=== PATIENT | male | born 1980 | race Two or more races ===

== ENCOUNTER 2019-02-24 08:59 | Inpatient (IN) | payer MEDICAID, OTHER ==
[~2019-02-24] VITALS: Ht 149.9 cm; Wt 74.1 kg
[2019-02-24] MEDS ORDERED: cloNIDine HCL 0.1 MG TAB PO ONE (09:15)
[2019-02-24 09:47] LABS: Urine Bacteria NONE SEEN /hpf (None Seen); Urine Blood Negative /uL (Negative); Urine Specific Gravity 1.011 (1.001-1.035); Urine WBC <1 /hpf (0 - 3)
[2019-02-24 09:55] LABS: Basophils # (auto) 0 uL; Basophils % (auto) 0.2 % (0.0-2.0); Eosinophils # (auto) 0 uL; Eosinophils % (auto) 0.1 % (0.0-7.0); Hematocrit 42.4 % (41.0-53.0); Hemoglobin 14.6 g/dL (13.5-17.5); Lymphocytes # (auto) 0.8 uL; Lymphocytes % (auto) 8.2 % (10.0-50.0); Mean Corpuscular Hemoglobin 30.7 pg (28.0-32.0); Mean Corpuscular Hgb Conc. 34.4 g/dL (32.0-36.0); Mean Corpuscular Volume 89.1 fL (80.0-100.0); Monocytes # (auto) 0.3 uL; Monocytes % (auto) 3.3 % (0.0-12.0); Neutrophils # (auto) 8.4 uL; Neutrophils % (auto) 88.2 % (37.0-80.0); Platelet Count (auto) 292 10^3/uL (140-450); Red Blood Cells 4.75 10^6/uL (4.5-5.90); Red Cell Distribution Width 12.7 % (11.8-14.3); White Blood Cell 9.5 10^3/uL (4.4-10.8)
[2019-02-24 10:14] LABS: Alanine Aminotransferase 45 U/L (16-61); Amylase 51 U/L (25-115); Anion Gap 5 (5-15); Aspartate Aminotransferase 17 U/L (15-37); BUN/Creatinine Ratio 10.7; Blood Urea Nitrogen 9 mg/dL (7-18); Calcium 8.5 mg/dL (8.5-10.1); Carbon Dioxide 31 mmol/L (21-32); Chloride 100 mmol/L (98-107); GFR African American 130 mL/min; GFR Non-African American 108 mL/min; Glucose 118 mg/dL (74-106); Lipase 80 U/L (73-393); Potassium 3.5 mmol/L (3.5-5.1); Sodium 136 mmol/L (136-145)
[2019-02-24 10:19] LABS: Alkaline Phosphatase 97 U/L (45-117); Bilirubin, Total 0.5 mg/dL (0.2-1.0)
[2019-02-24] MEDS ORDERED: LABETALOL HCL 5 MG/ML ML 20ML VIAL IV ONE (11:45)
[2019-02-24] MEDS ORDERED: PIPERACILLIN-TAZOB 3.375GM 100 ML IV ONE (12:30)
[2019-02-24] MEDS ORDERED: metroNIDAZOLE 500MG/100ML 100 ML IV ONE (12:30)
[2019-02-24] MEDS ORDERED: MORPHINE SULFATE 4 MG/ML SYR/VIAL IV ONE (13:00)
[2019-02-24] MEDS ORDERED: ONDANSETRON HCL 4 MG/2 ML VIAL IV ONE ×2 (13:00→15:45)
[2019-02-24] MEDS ORDERED: PROMETHAZINE HCL 25 MG/ML 1ML IV PRN (13:15)
[2019-02-24] MEDS ORDERED: KETOROLAC TROMETH 30 MG/ML 1ML VIAL IV PRN (13:15)
[2019-02-24] MEDS ORDERED: ACETAMINOPHEN 500 MG TAB PO PRN (13:15)
[2019-02-24] MEDS ORDERED: traMADol HCL 50 MG TAB PO PRN (13:15)
[2019-02-24] MEDS ORDERED: TEMAZEPAM 15 MG CAP PO PRN (13:15)
[2019-02-24] MEDS ORDERED: MORPHINE SULF INJ 2 MG/ML SYRINGE 1ML IV PRN (13:15)
[2019-02-24] MEDS ORDERED: NITROGLYCERIN 0.4 MG SL TAB SL PRN (13:15)
[2019-02-24] MEDS ORDERED: cefTRIAXone 1GM/50ML D5W 50 ML IV ONE (13:15)
[2019-02-24 13:20] LABS: Lactic Acid w/Reflex 2.1 mmol/L (0.4-2.0)
[2019-02-24] MEDS: SODIUM CHLORIDE 0.9% 1,000 ML IV SCH (13:58)
[2019-02-24] MEDS: metroNIDAZOLE 500MG/100ML 100 ML IV SCH ×2 (13:59→21:49)
[2019-02-24] MEDS: FAMOTIDINE (10MG/ML) 2ML VL IV SCH (14:01)
[2019-02-24 14:10] VITALS: BP 106/70
[2019-02-24 14:12] VITALS: BP 106/70
--- NOTE | 2019-02-24 14:12 | NUR ---
Telemetry admit from ER MUKESH CASTILLO admitted to Telemetry unit after SBAR received. Patient oriented to Oscar Unger, primary RN, unit, room, bed, and unit policies regarding patient care and visiting hours. Patient now on continuous telemetry monitoring, tele box # [id number] and telemetry reading on arrival to unit is [id number]. Patient placed on bedside oxygen, weighed by bedscale and encouraged to call if they need something. All questions and concerns addressed, patient verbalized understanding.
--- NOTE | 2019-02-24 15:10 | NUR ---
Patient brought to Pre-op via bed for Laparoscopic possibly open Cholecystectomy to be performed by Dr. Keen. Gave Reports to Brigida QUESADA.
[2019-02-24] MEDS ORDERED: SUCCINYLCHOLINE CHLORIDE 20 MG/ML 10ML VIAL IV ONE (15:18)
[2019-02-24] MEDS ORDERED: LIDOCAINE 1% (LOCAL ANESTH.) PF 5ml SDV ONE (15:18)
[2019-02-24] MEDS ORDERED: MIDAZOLAM HCL 1MG/1ML-2 ML VIAL ONE (15:22)
[2019-02-24] MEDS ORDERED: PROPOFOL 10 MG/ML 20 ML IV ONE (15:24)
[2019-02-24] MEDS ORDERED: ROCURONIUM 10MG/ML 10ML VIAL IV ONE (15:24)
[2019-02-24 15:31] LABS: INR 0.88 (0.9-1.15); Partial Thromboplastin Time 26.5 sec (23.64-32.05)
[2019-02-24] MEDS ORDERED: METOCLOPRAMIDE HCL 5MG/ml INJ 2ml VIAL ONE (15:36)
[2019-02-24] MEDS ORDERED: DexAMETHasone SOD PHOS 10MG/1ML VIAL INJ ONE (15:36)
[2019-02-24] MEDS ORDERED: fentaNYL CITRATE 100 MCG/2 ML VL ONE (15:38)
[2019-02-24] MEDS ORDERED: HYDROmorphone HCL 2 MG/ML VL IV PRN ×2 (15:45)
[2019-02-24] MEDS ORDERED: NALOXONE HCL 0.4 MG/ML VIAL IV PRN (15:45)
[2019-02-24] MEDS ORDERED: KETOROLAC TROMETH 30 MG/ML 1ML VIAL ONE (15:50)
[2019-02-24] MEDS ORDERED: hydrALAZINE HCL 20 MG/ML VL ONE (15:51)
[2019-02-24] MEDS ORDERED: GLYCOPYRROLATE 0.2 MG/ML 1ML VIAL ONE (16:03)
[2019-02-24] MEDS ORDERED: NEOSTIGMINE 1 MG/ML INJ (10mg/10ML VIAL) ONE (16:04)
--- NOTE | 2019-02-24 17:30 | NUR ---
Received reports from Brigida BRASS INSTRUMENT REPAIR TECHNICIAN, patient back to his room S/P Laparoscopic Cholecystectomy with JOHNNIE drain performed by Dr. Keen. Patient is still drowsy but not in respiratory distress. Bed alarm on and side rails up x2.
--- NOTE | 2019-02-24 19:30 | NUR ---
PM NOTE PT RESTING IN BED. NO SIGNS OF DISTRESS. AT BEDSIDE. BED IN LOW POSITION. CALL LIGHT WITH IN REACH. INSTRUCTED PT ON HOW TO USE THE INCENTIVE SPIROMETER. WILL CONTINUE TO MONITOR.
[2019-02-24 22:00] VITALS: BP 112/63
[2019-02-25] MEDS: FAMOTIDINE (10MG/ML) 2ML VL IV SCH (01:45)
[2019-02-25] MEDS: SODIUM CHLORIDE 0.9% 1,000 ML IV SCH (01:45)
--- NOTE | 2019-02-25 01:46 | NUR ---
GAVE REPORT TO GUDELIA QUESADA
[2019-02-25 05:00] VITALS: BP 125/68
[2019-02-25] MEDS: metroNIDAZOLE 500MG/100ML 100 ML IV SCH (06:26)
[2019-02-25 06:37] LABS: Basophils # (auto) 0 uL; Basophils % (auto) 0.1 % (0.0-2.0); Eosinophils # (auto) 0 uL; Hematocrit 39.8 % (41.0-53.0); Hemoglobin 13.8 g/dL (13.5-17.5); Lymphocytes # (auto) 0.6 uL; Lymphocytes % (auto) 5.5 % (10.0-50.0); Mean Corpuscular Hemoglobin 31.1 pg (28.0-32.0); Mean Corpuscular Hgb Conc. 34.7 g/dL (32.0-36.0); Mean Corpuscular Volume 89.7 fL (80.0-100.0); Monocytes # (auto) 0.3 uL; Monocytes % (auto) 2.6 % (0.0-12.0); Neutrophils # (auto) 9.4 uL; Neutrophils % (auto) 91.8 % (37.0-80.0); Platelet Count (auto) 282 10^3/uL (140-450); Red Blood Cells 4.44 10^6/uL (4.5-5.90); Red Cell Distribution Width 12.8 % (11.8-14.3); White Blood Cell 10.2 10^3/uL (4.4-10.8)
--- NOTE | 2019-02-25 06:59 | NUR ---
Patient resting comfortably viewing his cellphone. JOHNNIE drain intact with 75cc of Serous-Sanguinous draining.
--- NOTE | 2019-02-25 08:00 | NUR ---
Opening Shift Note Assumed care of patient, awake and alert. No S/S of distress/SOB 4/10pain incision sites abdomen. With post dressing dry and intact. Abdominal binder reapplied. Instructed on POC and to call for assist PRN, will continue to monitor for changes Q1hr and PRN.
[2019-02-25 08:40] VITALS: BP 140/79
[2019-02-25] MEDS ORDERED: cefTRIAXone 1GM/50ML D5W 50 ML IV SCH (09:00)
--- NOTE | 2019-02-25 11:14 | NUR ---
Spoke with Dr. Keen, patient is OK fr discharge home today and to follow up with him in 2 weeks.
[2019-02-25 11:20] VITALS: BP 140/79
[2019-02-25 12:27] VITALS: BP 150/79
--- NOTE | 2019-02-25 13:00 | NUR ---
Post op dressing change on the abdomen done. Drained 15ml of serosanguinous output on JOHNNIE drain.
--- NOTE | 2019-02-25 13:30 | NUR ---
Patient and the taught how to empty the JOHNNIE drain. Both of them verbalized understanding.
--- NOTE | 2019-02-25 14:55 | NUR ---
Discharge instructions given as ordered. Encourage to follow up with PMD as instructed. No PCP and no insurance, given continuum of date night caregiver card. Instructed to follow up with Dr. Keen in 2 weeks, kaitlin the office on Wednesday. All questions and concerns addressed. Patient verbalized understanding. Medication reconciliation form completed and copy given to patient. IV removed with catheter intact, pressure dressing applied. Telemetry unit returned to [place]. Patient ambulated with all personal belongings, accompanied by staff and family member. No distress noted at time of departure.
== END 2019-02-25 15:19 | disposition home or self-care (01) | DRG 263 ==
LOC: ER 09:03 → TELE 13:10 → TELE-EAST 14:24
PROVIDERS: ADMIT Internal Medicine; ATTEND Internal Medicine
PROC: 0FT44ZZ Resection of Gallbladder, Percutaneous Endoscopic Approach (ICD-10-PCS; principal; 2019-02-24 15:20)
DX: K80.00 Calculus of gallbladder with acute cholecystitis without obstruction (principal); K57.32 Diverticulitis of large intestine without perforation or abscess without bleeding; E66.9 Obesity, unspecified; I10 Essential (primary) hypertension; I25.10 Atherosclerotic heart disease of native coronary artery without angina pectoris; G47.33 Obstructive sleep apnea (adult) (pediatric); Z83.3 Family history of diabetes mellitus; Z68.33 Body mass index [BMI] 33.0-33.9, adult
CPT/HCPCS: 36415; 71045; 74176; 76705; 80053; 81001; 82150; 82247; 83605; 83690; 84484; 85025; 85610; 85730; 86850; 86900; 86901; 87040; 96365; 96367; 96368; 96375; G0378; J0330; J0696; J1100; J1885; J2250; J2405; J2543; J2704; J3490

== ENCOUNTER 2025-07-08 21:14 | Emergency (ER) | payer MEDICAID ==
[~2025-07-08] VITALS: Ht 157.5 cm; Wt 86.1 kg
[2025-07-08 22:02] LABS: Hematocrit 41.5 % (41.0-53.0); Hemoglobin 14.4 g/dL (13.5-17.5); Mean Corpuscular Hemoglobin 31.1 pg (28.0-32.0); Mean Corpuscular Volume 89.3 fL (80.0-100.0); Nucleated Red Blood Cells % 0.1 %
[2025-07-08 22:16] LABS: Albumin 4.4 g/dL (3.2-4.8); Anion Gap 7 (5-15); BUN/Creatinine Ratio 11.5 (10.0-20.0); Blood Urea Nitrogen 12 mg/dL (9-23); Calcium 9.5 mg/dL (8.7-10.4); Carbon Dioxide 31 mmol/L (20-31); Chloride 105 mmol/L (98-107); Potassium 4.0 mmol/L (3.5-5.1); Sodium 143 mmol/L (136-145); Total Protein 7.3 g/dL (5.7-8.2)
[2025-07-08 22:17] LABS: Bilirubin, Total 0.4 mg/dL (0.2-1.0)
[2025-07-08 22:18] LABS: Alanine Aminotransferase 46 U/L (7-40); Alkaline Phosphatase 116 U/L (46-116); Glucose 115 mg/dL (74-106)
[2025-07-08] MEDS ORDERED: AMLO1TAB22 PO (23:02)
[2025-07-08 23:11] VITALS: BP 215/116; TEMP 98.2
[2025-07-08 23:18] VITALS: PULSE 68; RESP 16; O2SAT 97
[2025-07-08] MEDS: LISINOPRIL 20 MG TAB PO ONE (23:25)
--- NOTE | 2025-07-09 00:01 | ED.PDOC ---
History of Present Illness HPI Comments 44 y/o obese M, with a Hx of HTN, presents with spouse for c/c of HTN. Patient was found hypertensive at ED triage at 233/129 after checking in his for flu-like symptoms, this evening. He states on being asymptomatic. He reports compliancy with his hypertension medication, which he took his last oral dose, earlier, today. Patient also reports upcoming PCP appointment, tomorrow. Chief Complaint: High Blood Pressure Time Seen by MD: 23:10 Reviewed Notes: Nurses Notes, Medications, Allergies Allergies: Coded Allergies: NO KNOWN ALLERGIES (Unverified , 02/24/19) Home Meds Active Scripts Amlodipine Besylate (Amlodipine Besylate) 5 Mg Tab, 1 TAB PO DAILY, #90 TAB 1 Refill Prov:SUZIE GOODEN MD 07/08/25 Information Source: Patient Mode of Arrival: Ambulatory Severity: Moderate Timing: Hours Duration: Since onset Prehospital treatment: None Past Medical History PAST MEDICAL HISTORY: Gallstones, HTN Surgical History: Denies all surgeries Family History Family History: Unknown Social History Smoker: Non-Smoker Alcohol: Denies ETOH Use Drugs: Denies Drug Use Lives In: Home All Other Systems: Reviewed and Negative (Comprehensive review of systems are negative unless stated in HPI) Physical Exam General Appearance: Mild Distress, Obese HEENT: Normal ENT Inspection, Pharynx Normal, TMs Normal Neck: Full Range of Motion, Non-Tender, Normal, Normal Inspection Respiratory: Chest Non-Tender, Lungs Clear, No Accessory Muscle Use, No Respiratory Distress, Normal Breath Sounds Cardiovascular: No Edema, No JVD, No Murmur, No Gallop, Normal Peripheral Pulses, Regular Rate/Rhythm Breast Exam: Deferred Gastrointestinal: No Organomegaly, Non Tender, No Pulsatile Mass, Normal Bowel Sounds, Soft Genitalia: Deferred Pelvic: Deferred Rectal: Deferred Extremities: No calf tenderness, Normal capillary refill, Normal inspection, Normal range of motion, Non-tender, No pedal edema Musculoskeletal : Apperance: Normal Neurologic: Alert, hydrographical technical officer II-XII nml as Tested, No Motor Deficits, Normal Affect, Normal Mood, No Sensory Deficits Cerebellar Function: Normal Reflexes: Normal Skin: Dry, Normal Color, Warm Lymphatic: No Adenopathy Was a procedure done? Was a procedure done?: No Differential Dx Considerations may include: hypertensive emergency, inappropriate medication dose, medication noncompliance, among others X-Ray, Labs, Meds, VS Vital Signs Date Time Temp Pulse Resp B/P (MAP) Pulse Ox O2 Delivery O2 Flow Rate FiO2 07/08/25 23:25 215/116 07/08/25 23:18 68 16 97 Room Air* 0 21 07/08/25 23:11 98.2 68 16 215/116 (149) 97 98.2 07/08/25 21:16 98.4 72 14 233/129 94 98.4 Lab Test 07/08/25 21:42 Range/Units White Blood Count 7.7 4.4-10.8 10^3/uL Red Blood Count 4.65 4.5-5.90 10^6/uL Hemoglobin 14.4 13.5-17.5 g/dL Hematocrit 41.5 41.0-53.0 % Mean Corpuscular Volume 89.3 80.0-100.0 fL Mean Corpuscular Hemoglobin 31.1 28.0-32.0 pg Mean Corpuscular Hemoglobin Concent 34.8 32.0-36.0 g/dL Red Cell Distribution Width 13.2 11.8-14.3 % Platelet Count 334 140-450 10^3/uL Mean Platelet Volume 8.2 6.9-10.8 fL Neutrophils (%) (Auto) 68.5 37.0-80.0 % Lymphocytes (%) (Auto) 22.9 10.0-50.0 % Monocytes (%) (Auto) 6.3 0.0-12.0 % Eosinophils (%) (Auto) 1.8 0.0-7.0 % Basophils (%) (Auto) 0.5 0.0-2.0 % Neutrophils # (Auto) 5.3 1.6-8.6 10 ^3/uL Lymphocytes # (Auto) 1.8 0.4-5.4 10 ^3/uL Monocytes # (Auto) 0.5 0-1.3 10 ^3/uL Eosinophils # (Auto) 0.1 0-0.8 10 ^3/uL Basophils # (Auto) 0 0-0.2 10 ^3/uL Nucleated Red Blood Cells 0.1 % Sodium Level 143 136-145 mmol/L Potassium Level 4.0 3.5-5.1 mmol/L Chloride Level 105 98-107 mmol/L Carbon Dioxide Level 31 20-31 mmol/L Anion Gap 7 5-15 Blood Urea Nitrogen 12 9-23 mg/dL Creatinine 1.04 0.700-1.30 mg/dL Glomerular Filtration Rate Calc 90 >90 mL/min BUN/Creatinine Ratio 11.5 10.0-20.0 Serum Glucose 115 H 74-106 mg/dL Calcium Level 9.5 8.7-10.4 mg/dL Total Bilirubin 0.4 0.2-1.0 mg/dL Aspartate Amino Transferase (AST) 21 13-40 U/L Alanine Aminotransferase (ALT) 46 H 7-40 U/L Alkaline Phosphatase 116 46-116 U/L Troponin I High Sensitivity 22 </=54 ng/L Total Protein 7.3 5.7-8.2 g/dL Albumin 4.4 3.2-4.8 g/dL Current Medications Medications (Trade) Dose Ordered Sig/Marisela Route Start Time Stop Time Status Last Admin Lisinopril (Zestril Tablet) 20 mg ONCE ONCE PO 07/08/25 21:45 07/08/25 21:46 DC 07/08/25 23:25 Time of 1ST Reevaluation: 23:40 Reevaluation 1ST: Unchanged Patient Education/Counseling: Diagnosis, Treatment, Need For Follow Up Family Education/Counseling: Diagnosis, Treatment, Need For Follow Up SEPSIS Sepsis Screen Date sepsis recognized/suspect: Jul 08, 2025 Time Sepsis recognized/suspect: 2116 Recent Procedure: No On Antibiotic Therapy: No Respiratory Rate >20: No Heart Rate >90: No Temp<36 C (96.8 F) or >38.3 C: No SBP <90 or MAP <65 mmHG: No New Acute Mental Status Change: No Is the patient on CPAP, BIPAP,: No Physician Orders Electrocardigram (07/08/25 21:35) Vital Signs Date Time Temp Pulse Resp B/P (MAP) Pulse Ox O2 Delivery O2 Flow Rate FiO2 07/08/25 23:25 215/116 07/08/25 23:18 68 16 97 Room Air* 0 21 07/08/25 23:11 98.2 68 16 215/116 (149) 97 98.2 07/08/25 21:16 98.4 72 14 233/129 94 98.4 Laboratory Tests Test 07/08/25 21:42 White Blood Count 7.7 10^3/uL (4.4-10.8) Medications Medications Dose Ordered Sig/Marisela Route Start Time Stop Time Status Last Admin Dose Admin Lisinopril 20 mg ONCE ONCE PO 07/08/25 21:45 07/08/25 21:46 DC 07/08/25 23:25 Departure 1 Departure Time of Disposition: 01:40 Impression: Primary Impression: Hypertension Disposition: 01 HOME / SELF CARE / HOMELESS Condition: Stable Additional Instructions: Follow up with your primary physician Return to the Emergency Department for any worsening symptoms or concerns e-Prescriptions Amlodipine Besylate (Amlodipine Besylate) 5 Mg Tab 1 TAB PO DAILY, #90 TAB 1 Refill Prov: SUZIE GOODEN MD 07/08/25 Discharged With: Spouse Critical Care Note Critical Care Time?: No Stability Stability form required: No Heart Score Heart Score: Heart Score Response (Comments) Value History N/A 0 EKG N/A 0 Age N/A 0 Risk Factors N/A 0 Troponin N/A 0 Total 0 I personally scribed for SUZIE GOODEN MD ([email or web address]) on 07/09/25 at 00:01. Electronically submitted by Rory Kraus ([email or web address]). SUZIE GOODEN MD Jul 09, 2025 00:01
== END 2025-07-08 23:45 | disposition home or self-care (01) ==
LOC: ER 21:14
DX: I10 Essential (primary) hypertension (principal); Z98.890 Other specified postprocedural states
CPT/HCPCS: 36415; 80053; 84484; 85025